=== PATIENT | female | born 1940 | race Native Hawaiian/Other Pacific Islander ===

== ENCOUNTER → 2021-12-02 14:36 | Outpatient (BNVA) | payer MEDICARE, MEDICAID, SELFPAY | PROVIDERS: Family Provider Family Medicine; Visit Provider Internal Medicine | DX: Z01.812 Encounter for preprocedural laboratory examination (principal); Z20.822 Contact with and (suspected) exposure to COVID-19 | CPT/HCPCS: 87635 ==

== ENCOUNTER 2021-12-08 06:51 | Day surgery (SDC) | payer MEDICARE, MEDICAID, SELFPAY ==
[2021-12-03 13:07] VITALS: BMI 21.6
[2021-12-08 07:14] VITALS: BP 154/106; PULSE 74; RESP 16; TEMP 36.7; O2SAT 98
[2021-12-08] MEDS: sodium chloride 0.9% 1,000 ML 30 ML IV (07:27)
--- NOTE | 2021-12-08 07:32 | ANES.PREANE2 ---
Pre-Anesthetic Assessment Height/Weight: Height 1.7 m Weight 62.596 kg Temp Pulse Resp BP Pulse Ox 98.1 F 74 16 154/106 98 12/08/21 07:14 12/08/21 07:14 12/08/21 07:14 12/08/21 07:14 12/08/21 07:14 Preop Diagnosis: BE Operation Date: 12/08/21 07:30 Proposed Procedures p EGD 03569/k22.70(Not Applicable) - Omar Nielsen MD Was Beta Leora taken within 24 hours: N/A Was Clonidine taken within 24 hours: N/A Last intake: Intake Last Liquid Date 12/07/21 Last Liquid Time 22:30 Last Solid Date 12/07/21 Last Solid Time 22:30 Social No alcohol and No tobacco Exam alert and oriented x 3 Airway Submandibular: within normal limits Cervical ROM: within normal limits Mallampati: Class I Dentition: false Pulmonary None reported CV/HEM Hypertension None reported Hepatic None reported GI Gastroesophageal Reflux Disease Metabolic None reported Musc/skel None reported Neuropsych None reported Anesthetic Plan ASA status: 2 Anesthesia: MAC Risk of > 500 ml blood loss (7ml/kg in children): No Medications/Allergies Home Medications Medication Instructions Recorded Confirmed Last Taken Type pantoprazole 40 mg tablet,delayed 40 mg PO BID #60 tab 02/06/20 12/08/21 12/07/21 Rx release Lactobacillus reuteri 100 million 1 cell PO DAILY 12/02/21 12/08/21 12/07/21 History cell chewable tablet (Pedia-Lax Probiotic Yuky) betamethasone dipropionate 0.05 % 1 applic TOPICAL DAILY PRN 12/02/21 12/08/21 12/07/21 History topical cream cephalexin 250 mg capsule 250 mg PO DAILY cap 12/02/21 12/08/21 12/07/21 History dextromethorphan polistirex 30 10 ml PO Q12H 12/02/21 12/08/21 Unknown History mg/5 mL oral susp ext.release 12hr (Delsym 12 hour) lisinopril 10 mg tablet 10 mg PO DAILY 12/02/21 12/08/21 12/08/21 History menthol-herbal drugs lozenges 1 briseida MUCOUS MEMBRANE Q2H 12/02/21 12/08/21 12/07/21 History (Ricola) methenamine hippurate 1 gram tablet 1 g PO DAILY tab 12/02/21 12/08/21 12/07/21 History olopatadine 0.1 % eye drops 1 drp OPHTHALMIC (EYE) BID 12/02/21 12/08/21 12/08/21 History Allergies Allergy/AdvReac Type Severity Reaction Status Date / Time chicken derived Allergy ADR-Vomitin Verified 12/08/21 07:11 g Current Medications Generic Name Dose Route Start Last Admin Trade Name Freq PRN Reason Stop Dose Admin Sodium Chloride 1,000 mls @ 30 mls/hr 12/08/21 07:00 12/08/21 07:27 Sodium Chloride 0.9% IV 12/09/21 06:59 30 mls/hr .Q24H DAMARIS Administration PFSH Anesthesia Social History (Updated 12/02/21 @ 13:17 by TIFFANY Castillo) Smoking and tobacco status: former smoker Adopted: No Marital status: / Number of children: 5 service: No History of recent travel: No Data Anesthesia Cardiac Studies: No Data to Display
--- NOTE | 2021-12-08 07:45 | W.PM.OPSFHP ---
Same Day Surgery H&P Indication for Procedure/HPI DATE OF PROCEDURE: December 08, 2021 CHIEF COMPLAINT/INDICATIONFOR SURGICAL PROCEDURE: History of BE PREOP DIAGNOSIS: BE PLANNED PROCEDURE: Operation Date: 12/08/21 07:30 Proposed Procedures p EGD 82109/k22.70(Not Applicable) - Omar Nielsen MD Medications/Allergies* Home Medications Medication Instructions Recorded Confirmed Type Lactobacillus reuteri 100 million 1 cell PO DAILY 12/02/21 12/08/21 History cell chewable tablet (Pedia-Lax Probiotic Yunm) betamethasone dipropionate 0.05 % 1 applic TOPICAL DAILY PRN 12/02/21 12/08/21 History topical cream cephalexin 250 mg capsule 250 mg PO DAILY cap 12/02/21 12/08/21 History dextromethorphan polistirex 30 10 ml PO Q12H 12/02/21 12/08/21 History mg/5 mL oral susp ext.release 12hr (Delsym 12 hour) lisinopril 10 mg tablet 10 mg PO DAILY 12/02/21 12/08/21 History menthol-herbal drugs lozenges 1 briseida MUCOUS MEMBRANE Q2H 12/02/21 12/08/21 History (Ricola) methenamine hippurate 1 gram tablet 1 g PO DAILY tab 12/02/21 12/08/21 History olopatadine 0.1 % eye drops 1 drp OPHTHALMIC (EYE) BID 12/02/21 12/08/21 History Allergies/Adverse Reactions Allergy/AdvReac Type Severity Reaction Status Date / Time chicken derived Allergy ADR-Vomitin Verified 12/08/21 07:11 g Current Medications: Generic Name Dose Route Start Last Admin Trade Name Freq PRN Reason Stop Dose Admin Sodium Chloride 1,000 mls @ 30 mls/hr 12/08/21 07:00 12/08/21 07:27 Sodium Chloride 0.9% IV 12/09/21 06:59 30 mls/hr .Q24H DAMARIS Administration Pertinent History/Comorbid Conditions* Social History Smoking and tobacco status: former smoker Adopted: No Marital status: / Number of children: 5 service: No History of recent travel: No Pertinent Exam Findings alert, oriented x 3, clear to auscultation bilaterally, regular rate & rhythm, operative site marked and procedure specific exam findings Recommendations Surgery/Procedure today Coding Level of Care Code Acute Mechanism Inspector for Bebe Fraga
[2021-12-08 07:56] VITALS: BP 100/61; PULSE 91; RESP 16; TEMP 36.1; O2SAT 95
[2021-12-08 08:07] VITALS: BP 124/65; PULSE 90; RESP 18; O2SAT 94
--- NOTE | 2021-12-08 15:48 | ANE.PACU2 ---
Inpatient post-anesthesia follow up: Airway intact: Yes Vital signs: Temperature 97.0 F Pulse Rate 90 Respiratory Rate 18 Blood Pressure 124/65 Pulse Oximetry 94 Oxygen Delivery Me thod Room Air Oxygen Flow Rate Fraction of Inspir ed Oxygen Hydration adequate: Yes Nausea and vomiting: No Pain level: 1 Mental status: Baseline
== END 2021-12-08 08:17 | disposition home or self-care (01) ==
PROVIDERS: PCP Family Medicine; Visit Provider Internal Medicine
PROC: 0DJ08ZZ Inspection of Upper Intestinal Tract, Via Natural or Artificial Opening Endoscopic (ICD-10-PCS; CPT 43235; principal; 2021-12-08 07:30)
DX: K22.70 Barrett's esophagus without dysplasia (principal); K44.9 Diaphragmatic hernia without obstruction or gangrene; I10 Essential (primary) hypertension; K21.9 Gastro-esophageal reflux disease without esophagitis; Z87.891 Personal history of nicotine dependence
CPT/HCPCS: 43239; 88305; J2704; J7030

== ENCOUNTER → 2022-04-22 13:10 | Outpatient (BNVA) | payer MEDICARE, MEDICAID, SELFPAY | PROVIDERS: PCP Family Medicine; Visit Provider Internal Medicine | DX: I10 Essential (primary) hypertension (principal); Z87.891 Personal history of nicotine dependence | CPT/HCPCS: 99203; 99204 ==

== ENCOUNTER 2022-07-08 12:35 | Outpatient (CLI) | payer MEDICARE, MEDICAID, SELFPAY ==
[2022-07-08 14:00] LABS: Blood Urea Nitrogen 9 mg/dL (8-23)
--- NOTE | 2022-07-08 14:00 | CT_ITS ---
WS: [id number] CTA THORACIC AORTA WITH AND WITHOUT CONTRAST. HISTORY: thoracic aortic aneurysm TECHNIQUE: CT imaging of the thorax is performed with and without contrast. After noncontrast imaging is performed, CT angiogram is performed during injection of Omnipaque 350; 95 mL IV.. Sagittal and c oronal reconstructions, sagittal and coronal MIP imaging is submitted. All CT scans at [facility] use at least one of these dose optimization techniques: automated exposure control; mA and/or kV adjustment per patient size (includes targeted exams where dose is matched to clinical indication); or iterative reconstruction. DLP: 1057.13 mGy.cm COMPARISON: None available. Very good opacification of the thoracic aorta. There is atherosclerotic plaque and mild ectasia. No s ignificant dilatation of the aortic annulus. Ascending aorta maximum diameter of 3.3 cm. Descending t horacic aorta diameter at the level of the jag is 2.8 cm. There is intimal thickening and calcifie d plaque but no aneurysm. Mild atherosclerotic plaque at the origins of the subclavian artery and the LEFT carotid artery but no high-grade stenosis. No thoracic aortic dissection. Irregular luminal dayami que at the aortic hiatus. 50% stenosis involving the celiac axis. Mild stenosis involving the SMA. Hyperexpanded lungs from emphysema. Scattered granulomata. Peripheral reticulations from mild interst itial lung disease and developing fibrosis. No mass or nodule. No pneumonia. No pericardial or pleura l effusion. There is mild enlargement of the LEFT heart chambers. Mild to moderate scattered coronary artery calcifications. Small mediastinal and hilar lymph nodes. No adenopathy. Moderate-sized hiatal hernia. LEFT adrenal well-circumscribed mass measures 2.7 x 2.9 cm consistent w ith an adenoma. Splenic and hepatic granulomata. Increase in thoracic kyphosis. CT/CT angio chest [id number] IMPRESSION: 1. No thoracic aortic aneurysm. No dissection. 2. Maximum transverse diameter ascending aorta is 3.3 cm. 3. Irregular calcified plaque in noncalcified plaque throughout the aorta. 4. Moderate size hiatal hernia. 5. LEFT adrenal adenoma.
[2022-07-08] MEDS: iohexol 350 mg/mL 100 mL Btl IV (14:12)
--- NOTE | 2022-07-08 15:15 | USCV_ITS ---
Pinky Newman Age: 81 Gender: F : 1940 Exam Date: 07/08/2022 15:04 Ordering Phys: Mik Westfall M.D ([email or web address]) Technologist: Good [place] Exam Location: [facility] [place] Indication: Thoracic anuerysm BP: 145 / 79 HR: 80 Rhythm: Sinus Technical Quality: Adequate MEASUREMENTS (Male / Female) Normal Values 2D ECHO LV Diastolic Diameter PLAX 4.4 cm 4.2 - 5.9 / 3.9 - 5.3 cm LV Systolic Diameter PLAX 2.7 cm IVS Diastolic Thickness 1.1 cm 0.6 - 1.0 / 0.6 - 0.9 cm IVS Systolic Thickness 1.1 cm LVPW Diastolic Thickness 1.1 cm 0.6 - 1.0 / 0.6 - 0.9 cm LVPW Systolic Thickness 1.4 cm LVOT Diameter 2.0 cm LV Ejection Fraction 2D Teich 70.2 % LV Ejection Fraction MOD 2C 65.7 % LV Ejection Fraction 2C AL 65.1 % LA Diameter 3.4 cm LA Width 3.4 cm LA Height 5.4 cm RA Width 3.7 cm RA Height 4.5 cm Aorta at Sinotubular Diameter 2.1 cm IVC Diameter 1.9 cm M-MODE Aortic Annulus Diameter 2.9 cm LA Ao Ratio MM 1.2 MV E Point Septal Separation 0.6 cm DOPPLER AV Peak Velocity 162.0 cm/s LVOT Peak Velocity 126.0 cm/s AV Area Cont Eq vti 2.8 cm squared AV Area Cont Eq pk 2.5 cm squared MV Peak Velocity 149.0 cm/s MV Area PHT 3.7 cm squared Mitral E to A Ratio 0.6 MV E' Velocity 48.0 cm/s Mitral E to MV E' Ratio 10.3 Mitral E to LV E' Lateral Ratio 9.9 Mitral E to LV E' Septal Ratio 10.7 TR Peak Velocity 244.7 cm/s TR Peak Gradient 24.0 mmHg TR Mean Velocity 196.2 cm/s TR Mean Gradient 16.3 mmHg TR Velocity Time Integral 58.9 cm Right Atrial Pressure 3.0 mmHg Pulmonary Artery Systolic Pressu 27.0 mmHg PV Peak Velocity 124.0 cm/s RV Acceleration Time 0.1 s RV Ejection Time 0.3 s RV AcT/ET 0.3 FINDINGS Left Ventricle Left ventricle is normal size. LV systolic function is normal with EF of 55 to 60%. No regional wall motion abnormalities are seen. Grade 1 diastolic dysfunction Right Ventricle RV is normal in size and function Right Atrium Normal in size Left Atrium Normal in size Mitral Valve Mild mitral annular calcification seen. Mild mitral regurgitation Aortic Valve Aortic valve is thickened. No significant stenosis seen. Mild aortic regurgitation Tricuspid Valve Mild tricuspid regurgitation. Pulmonary artery systolic pressure is normal Pulmonic Valve Not well-visualized. Mild pulmonic regurgitation Pericardium Normal Aorta Normal in size ascending aorta IVC CONCLUSIONS LV systolic function is normal with EF of 55 to 60%. Grade 1 diastolic dysfunction Mild mitral annular calcification seen. Mild mitral regurgitation Aortic valve is thickened. Mild aortic regurgitation Mild tricuspid regurgitation Mild pulmonic regurgitation. No comparison studies are available Mik Westfall MD (Electronically Signed) Final Date: 19 July 2022 17:02 S
== END 2022-07-08 12:36 | disposition home or self-care (01) ==
PROVIDERS: PCP Family Medicine; Visit Provider Internal Medicine
DX: I71.2 Thoracic aortic aneurysm, without rupture (principal); I10 Essential (primary) hypertension; I70.0 Atherosclerosis of aorta; K44.9 Diaphragmatic hernia without obstruction or gangrene; D35.02 Benign neoplasm of left adrenal gland
CPT/HCPCS: 71275; 82565; 84520; 93306